=== PATIENT | male | born 1990 | race Two or more races ===

== ENCOUNTER 2023-03-28 07:53 | Emergency (ER) | payer OTHER, BC, SELFPAY ==
[2023-03-28 08:04] VITALS: BP 140/96; PULSE 83; O2SAT 98
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
[2023-03-28 08:09] VITALS: BP 139/89; PULSE 75; RESP 18; TEMP 36.4; O2SAT 98; BMI 29.2
[2023-03-28] MEDS: Ibuprofen 600 MG TABLET PO (08:43)
== END 2023-03-28 09:13 | disposition home or self-care (01) ==
PROVIDERS: Emergency Provider Emergency Medicine
DX: Z04.1 Encounter for examination and observation following transport accident (principal); M54.50 Low back pain, unspecified
CPT/HCPCS: 99283; 99284

== ENCOUNTER 2023-03-30 12:49 | Emergency (ER) | payer OTHER, BC, SELFPAY ==
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
[2023-03-30 13:50] VITALS: BP 153/101; PULSE 67; RESP 18; TEMP 36.4; O2SAT 99; BMI 28.4
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
[2023-03-30 15:54] VITALS: BP 141/91; PULSE 62; RESP 16; TEMP 36.7; O2SAT 99
== END 2023-03-30 16:34 | disposition home or self-care (01) ==
LOC: HO.ED 16:29
PROVIDERS: Emergency Provider Emergency Medicine
DX: S16.1XXA Strain of muscle, fascia and tendon at neck level, initial encounter (principal); V43.52XA Car driver injured in collision with other type car in traffic accident, initial encounter; Y93.89 Activity, other specified; Y92.410 Unspecified street and highway as the place of occurrence of the external cause; Y99.9 Unspecified external cause status
CPT/HCPCS: 72100; 72125; 99284